=== PATIENT | male | born 1970 | race Caucasian/White ===

== ENCOUNTER 2018-06-13 17:33 | Inpatient (IN) | payer OTHER, SELFPAY ==
[2018-06-13] VITALS (10 sets, daily range): BP systolic 119–143; BP diastolic 50–70; PULSE 87–122; RESP 16–20; TEMP 36.5–37.1; O2SAT 94–96; BMI 31.1; BMI 32.1; BMI 30.3
--- NOTE | 2018-06-13 17:54 | RAD_ITS ---
STUDY: X-RAY CHEST REASON FOR EXAM: Male, 47 years old. : Cold symptoms TECHNIQUE: PA and lateral COMPARISON: None. FINDINGS: There is mild bilateral perihilar interstitial thickening with focal nodular infiltrate possibly pneumonia... There is no demonstrated pleural abnormality. Normal size heart. Normal mediastinum and vero. Normal visualized pulmonary arteries. Normal visualized aortic arch and descending thoracic aorta. Dorsal spine demonstrates mild spondylosis. Normal visualized ribs, clavicles, and shoulders. There is no demonstrated abnormality of the visualized soft tissue structures of the upper abdomen. RAD/Chest PA and Lateral IMPRESSION: Mild bilateral perihilar interstitial thickening and focal infiltrate in the lingula possibly inflammatory. Electronically Signed: Bryson Jacobs MD at 18:59 EDT , Service support ,
--- NOTE | 2018-06-13 17:59 | NURSING ---
NO OLD EKGS
[2018-06-13] MEDS: predniSONE 20 MG Tablet 60 MG PO (18:08)
[2018-06-13] MEDS: 0.9% Normal Saline 1,000 ML 999 ML IV ×3 (18:08→22:10)
[2018-06-13] MEDS: Albuterol 2.5 MG/3 ML VIAL.NEB. INHALATION ×2 (18:15)
[2018-06-13] MEDS: Ipratropium/Albuterol Sulfate 3 ML AMPUL.NEB INHALATION ×2 (18:15→23:32)
[2018-06-13 18:54] LABS: Absolute Lymphocyte Count 2.23 X10^3/ul (0.83-4.51); Absolute Neutrophil Count 14.1 X10^3/uL (2.0-7.7); Basophil# 0.02 X10^3/uL; Basophil% 0.1 % (0-1); Eosinophil# 0.22 X10^3/uL; Eosinophils% 1.2 % (0-5); Hematocrit 45.6 % (40-54); Hemoglobin 15.4 g/dl (13.0-16.5); Lymphocyte # 2.23 X10^3/ul (4.0); Lymphocyte % 12.5 % (19-41); Mean Corp Hgb Conc 33.8 g/gl (32-36); Mean Corpuscular Hgb 31.5 pg (27.0-32.0); Mean Corpuscular Volume 93.3 fL (80-94); Mean Platelet Vol. 10.6 fl (6.2-12.0); Monocyte# 1.21 X10^3/uL; Monocyte% 6.8 % (0-10); Neutrophil # 14.13 X10^3/uL (2.7-7.7); Neutrophil % 79.2 % (47-70); Platelet Count 244 K/mm3 (150-450); RBC Distribution Width CV 13.5 % (11.6-14.6); RBC Distribution Width SD 45.9 fl (35.1-43.9); Red Blood Count 4.89 M/mm3 (4.6-6.2); White Blood Count 17.9 K/mm3 (4.4-11.0)
--- NOTE | 2018-06-13 18:57 | ED.VIS.DYS ---
History of Present Illness Chief Complaint: Cold Sx Informant: Patient Onset: Weeks - 1.5 Activity at onset: Exertion, Light Activity Timing: Continuous Quality: Dyspnea on exertion Current Severity: Mild Maximum Severity: Moderate Worsened by: Coughing Associated Symptoms: Cough. Negative for: Fever Chest Pain: None Narrative: Patient presenting for evaluation secondary to shortness of breath. Patient reports over the course of the last week and a half he has been dealing with worsening shortness of breath. Associated with wheezing and a cough. Patient denies any lung history, but does state that he is a smoker. Patient states that he is having reasonably significant exertional dyspnea now. Denies any chest pain. Denies any DVT or PE risk factors. Review of systems otherwise negative. Past Medical History - Allergies and Home Meds Allergies/Adverse Reactions: Allergies No Known Allergies Allergy (Verified 06/13/18 17:35) Primary Care Physician: Care Physician,No Primary [Primary Care Provider] - Smoking Status: Current every day smoker Review of Systems All systems negative except as indicated General: Denies: Chills, Fever Cardiovascular: Denies: Chest pain Respiratory: Reports: Dyspnea, Cough, Dyspnea on exertion Gastrointestinal: Denies: Nausea, Vomiting, Diarrhea Physical Exam Vital Signs/Narrative: Vital Signs Temp Pulse Resp BP Pulse Ox 06/13/18 18:16 118 H 20 H 06/13/18 17:57 98.4 F 109 H 19 H 136/70 H 94 06/13/18 17:34 97.7 F L 112 H 16 136/70 H 95 General: Well nourished, Well developed, No Acute Distress Head: Normocephalic, Atraumatic Eyes: Perrl, EOMI ENT: Moist mucous membranes, No rhinorrhea Neck: Supple, Nontender Cardiovascular: Regular rhythm, Tachycardia, - - 2+ radial pulses bilaterally symmetric Respiratory: - - Patient is tachypneic with bilateral wheezes and rhonchi noted throughout the lung hyde. No retractions noted. Abdomen: Soft, Nontender, Nondistended, Normal bowel sounds Extremities: Nontender, No edema Skin: Normal color, No rash Neurological: Alert, Oriented x3, Cranial nerves II-XII grossly intact, Normal Strength, Normal Sensation Psychological: Normal affect, Normal Mood Diagnostic/Tx/Re-eval Chest X-Ray - ED: Left Infiltrate - Medical Decision Making Patient presented secondary to shortness of breath. Patient was found to be tachycardic and tachypneic upon arrival. Work-up for sepsis was obtained. Patient was found to have a leukocytosis of approximately 18. He was found to have an elevated lactic acid 2.8. X-ray demonstrated a left lingular infiltrate. Patient was given a DuoNeb and 2 albuterol treatments and prednisone upon arrival, and upon recognition of his pneumonia and sepsis he was given a 2 L normal saline bolus, and Rocephin and azithromycin. Given the patient's severe sepsis I believe that he requires admission. Patient will be admitted under the hospitalist. Disposition: Admit to PCU ED Disposition - Plan for ED Patient: Diagnosis: Severe sepsis, Community acquired pneumonia, COPD exacerbation Referrals: Care Physician,No Primary [Primary Care Provider] -
[2018-06-13 19:04] LABS: Anion Gap 5 (5-15); BUN 12 mg/dL (7-18); BUN/Creat Ratio 10.3 RATIO (10-20); Calcium,Total 8.2 mg/dL (8.5-10.1); Chloride 102 mmol/L (98-107); Creatinine, Serum 1.16 mg/dL (0.70-1.30); EST Glomerular Filtration Rate 72 mL/min (>60); Est Glom Filt Rate - Afr Amer 87 mL/min (>60); Estimated Creatinine Clearance 88.27 ml/min; Glucose 131 mg/dL (74-106); Potassium 3.9 mmol/L (3.5-5.1); Sodium Level 135 mmol/L (136-145)
[2018-06-13 19:12] LABS: Lactic Acid 2.8 mmol/L (0.4-2.0)
--- NOTE | 2018-06-13 19:12 | ED.RN ---
lab called with critical lab results. lactic acid 2.8. Dr. Barraza made aware. no new orders at this time
[2018-06-13 19:28] LABS: POSITIVE COUNT NO; POSITIVE DIFFERENTIAL NO; POSITIVE MORPHOLOGY NO
[2018-06-13] MEDS: Ceftriaxone 1 GM/50 ML BAG IV (19:57)
--- NOTE | 2018-06-13 20:12 | HP.PCM_ITS ---
Problem List (1) Severe sepsis Status: Acute (2) Community acquired pneumonia Status: Acute History of Present Illness Date of Admission: 06/13/18 Chief Complaint: Shortness of breath The patient is a 47 year old M with no known past medical history presenting with shortness of breath and dyspnea on exertion for the last 1.5 weeks. He had a mild fever at home at 100.7 per the . On presentation to the ER he was found to have some wheezing and rhonchi as well as a chest x-ray demonstrating a lingular pneumonia. His father does have a diagnosis of COPD but he has never been diagnosed despite his smoking for several years. In the ER he was tachycardic to over 100 as well as tachypneic to 20 and a white count of close to 18 thousand. He was given a dose of Rocephin and azithromycin in the ER as well as a fluid bolus consistent with his diagnosis of sepsis. Past Medical History Past Medical History (Chronic Problems): Chronic Problems COPD exacerbation (Chronic) Allergies No Known Allergies Allergy (Verified 06/13/18 17:35) Home Medications: Ambulatory Orders Medication Instructions Recorded NK 06/13/18 Surgical History: no surgical history Smoking Status: Current every day smoker Tobacco Use: Cigarettes - *Family History Maternal History Items: No pertinent history Paternal History Items: No pertinent history Review of Systems Constitutional: Reports: Fever. Denies: Chills, Weight Change HEENT: Denies: Head Aches, Sinus Congestion, Sinus Drainage Cardiovascular: Denies: Chest Pain, Palpitations Respiratory: Reports: Shortness of Breath, Shortness of breath upon exertion. Denies: Cough, Shortness of breath at rest, Sputum production Gastrointestinal: Denies: Abdominal Pain, Nausea, Vomiting Genitourinary: Denies: Dysuria Musculoskeletal: Denies: Joint Pain, Joint Tenderness Skin: Denies: Rash, Wounds Neurological: Denies: Numbness, Tingling, Focal weakness Psychiatric: Denies: Anxiety, Depression Hematologic/ Lymphatic: Denies: Easy Bruising, Easy Bleeding VTE Information - Inpt Only VTE Present on Admission: No Patient Problems: Active and Suspected Problems Severe sepsis (Acute) Community acquired pneumonia (Acute) - Physical Exam General: Alert, Oriented x3, Cooperative, No apparent distress HEENT: Atraumatic, PERRLA, EOMI, Normocephalic Oral: Dry Mucosa Neck: Supple, No JVD Lungs: Normal air movement, Rhonchi, Wheezes Cardiovascular: Regular rate, Regular Rhythm, Normal S1, Normal S2, No murmurs Abdomen: Soft, Non Tender, Non-Distended, No Hepato-splenomegaly Extremities: No edema, Capillary Refill Less than 3 Seconds Skin: No rashes, No breakdown Neurological: Neuro grossly intact, Sensory exam intact to light touch and pain Psych/Mental Status: Normal Affect, Appropriate Vital Signs Temp Pulse Resp BP Pulse Ox 98.7 F 122 H 18 143/65 H 95 06/13/18 19:40 06/13/18 19:40 06/13/18 19:40 06/13/18 19:40 06/13/18 19:40 Oxygen Delivery Method Room Air Weight: 230 lb Body Mass Index (BMI) 31.1 Microbiology Past 72 Hours 06/13/18 18:08 Influenza Types A,B Direct FA (JULIANA) - Final Mucosa - Nasopharyngeal Laboratory Tests Past 24 Hrs 06/13/18 06/13/18 06/13/18 18:05 18:05 18:05 WBC 17.9 H RBC 4.89 Hgb 15.4 Hct 45.6 MCV 93.3 MCH 31.5 MCHC 33.8 RDW 13.5 RDW Differential 45.9 H Plt Count 244 MPV 10.6 Immature Gran % (Auto) 0.200 Neut % (Auto) 79.2 H Lymph % (Auto) 12.5 L [place] % (Auto) 6.8 Eos % (Auto) 1.2 Baso % (Auto) 0.1 Absolute Neuts (auto) 14.1 H Absolute Lymphs (auto) 2.23 Total Counted Not Reportable Sodium 135 L Potassium 3.9 Chloride 102 Carbon Dioxide 28.0 Anion Gap 5 BUN 12 Creatinine 1.16 Estim Creat Clear Calc 88.27 Est GFR (MDRD) Af Amer 87 Est GFR (MDRD) Non-Af 72 BUN/Creatinine Ratio 10.3 Glucose 131 H Lactic Acid 2.8 H Calcium 8.2 L Assessment/Plan All Active Problems Severe sepsis (Acute) Community acquired pneumonia (Acute) 1. Sepsis secondary to community-acquired pneumonia gram-positive organism/possible COPD -Has leukocytosis as well as tachycardia, lactate of 2.8 in the ER -Continue with IV fluids at 125 cc/h -Continue with Rocephin/azithromycin -X-ray with a lingular infiltrate -Start on oral prednisone 40 daily as well as duo nebs as needed 2. Tobacco use -Discussed cessation -We will provide a nicotine patch DVT: Ambulation Code Visit Inpatient E&M: 81959 Init Hosp L3
[2018-06-13 22:49] LABS: Reflex Lactate? Y
[2018-06-13] MEDS: 0.9% Normal Saline 1,000 ML 125 ML IV (23:21)
[2018-06-13 23:58] LABS: Lactic Acid 2.1 mmol/L (0.4-2.0)
[2018-06-14] VITALS (7 sets, daily range): BP systolic 110–129; BP diastolic 48–70; PULSE 83–101; RESP 16–24; TEMP 36.7–36.9; O2SAT 93–96
[2018-06-14 05:55] LABS: Absolute Lymphocyte Count 1.26 X10^3/ul (0.83-4.51); Absolute Neutrophil Count 12.2 X10^3/uL (2.0-7.7); Basophil# 0.01 X10^3/uL; Basophil% 0.1 % (0-1); Eosinophil# 0.01 X10^3/uL; Eosinophils% 0.1 % (0-5); Hematocrit 40.8 % (40-54); Hemoglobin 13.7 g/dl (13.0-16.5); Lymphocyte # 1.26 X10^3/ul (4.0); Lymphocyte % 8.8 % (19-41); Mean Corp Hgb Conc 33.6 g/gl (32-36); Mean Corpuscular Volume 92.3 fL (80-94); Mean Platelet Vol. 10.4 fl (6.2-12.0); Monocyte# 0.89 X10^3/uL; Monocyte% 6.2 % (0-10); Neutrophil # 12.15 X10^3/uL (2.7-7.7); Neutrophil % 84.6 % (47-70); Platelet Count 241 K/mm3 (150-450); RBC Distribution Width CV 13.3 % (11.6-14.6); Red Blood Count 4.42 M/mm3 (4.6-6.2); White Blood Count 14.4 K/mm3 (4.4-11.0)
[2018-06-14 05:59] LABS: POSITIVE COUNT NO; POSITIVE DIFFERENTIAL NO; POSITIVE MORPHOLOGY NO
[2018-06-14 06:10] LABS: Anion Gap 4 (5-15); BUN 14 mg/dL (7-18); BUN/Creat Ratio 14.2 RATIO (10-20); Calcium,Total 7.5 mg/dL (8.5-10.1); Chloride 109 mmol/L (98-107); Creatinine, Serum 0.98 mg/dL (0.70-1.30); EST Glomerular Filtration Rate 87 mL/min (>60); Est Glom Filt Rate - Afr Amer 106 mL/min (>60); Estimated Creatinine Clearance 104.48 ml/min; Glucose 115 mg/dL (74-106); Potassium 4.3 mmol/L (3.5-5.1); Sodium Level 141 mmol/L (136-145)
[2018-06-14] MEDS: 0.9% Normal Saline 1,000 ML 125 ML IV (06:51)
[2018-06-14] MEDS: Ipratropium/Albuterol Sulfate 3 ML AMPUL.NEB INHALATION ×3 (07:30→19:06)
[2018-06-14] MEDS: predniSONE 20 MG Tablet 40 MG PO (08:16)
--- NOTE | 2018-06-14 10:57 | PCM.PROGNOTE ---
Patient Problems: Active and Suspected Problems Severe sepsis (Acute) Community acquired pneumonia (Acute) Subjective: Patient seen and examined. States he does not feel improved, continues to complain of shortness of breath and fatigue. Reports difficulty bringing up sputum. Denies fever, chills. - Physical Exam General: Alert, Oriented x3, Cooperative HEENT: Atraumatic, PERRLA, EOMI, Normocephalic Neck: Supple, No JVD, Negative Carotid Bruits Lungs: Diminished, Rhonchi, Wheezes Cardiovascular: Regular rate, Regular Rhythm, Normal S1, Normal S2, No murmurs Abdomen: Bowel Sounds Present, Soft, Non Tender, Non-Distended Extremities: No clubbing, No cyanosis, No edema, Capillary Refill Less than 3 Seconds Skin: No rashes, No breakdown Musculoskeletal: No Tenderness to Palpation of Joints or Extremities Neurological: Cranial nerves II-XII grossly intact, Neuro grossly intact Psych/Mental Status: Normal Affect, Appropriate Vital Signs Temp Pulse Resp BP Pulse Ox 98.1 F 83 16 116/70 95 06/14/18 08:12 06/14/18 08:12 06/14/18 08:12 06/14/18 08:12 06/14/18 08:12 Oxygen Delivery Method Room Air Weight: 223 lb 8.78 oz Body Mass Index (BMI) 30.3 Intake and Output for Last 24 Hours 06/12/18 06/13/18 06/14/18 23:59 23:59 23:59 Intake Total 2927 / 2927 1052 / 1052 Balance 2927 / 2927 1052 / 1052 Microbiology Past 72 Hours 06/13/18 18:08 Influenza Types A,B Direct FA (JULIANA) - Final Mucosa - Nasopharyngeal Laboratory Tests Past 24 Hrs 06/13/18 06/13/18 06/13/18 18:05 18:05 18:05 WBC 17.9 H RBC 4.89 Hgb 15.4 Hct 45.6 MCV 93.3 MCH 31.5 MCHC 33.8 RDW 13.5 RDW Differential 45.9 H Plt Count 244 MPV 10.6 Immature Gran % (Auto) 0.200 Neut % (Auto) 79.2 H Lymph % (Auto) 12.5 L [place] % (Auto) 6.8 Eos % (Auto) 1.2 Baso % (Auto) 0.1 Absolute Neuts (auto) 14.1 H Absolute Lymphs (auto) 2.23 Total Counted Not Reportable Sodium 135 L Potassium 3.9 Chloride 102 Carbon Dioxide 28.0 Anion Gap 5 BUN 12 Creatinine 1.16 Estim Creat Clear Calc 88.27 Est GFR (MDRD) Af Amer 87 Est GFR (MDRD) Non-Af 72 BUN/Creatinine Ratio 10.3 Glucose 131 H Lactic Acid 2.8 H Calcium 8.2 L 06/13/18 06/14/18 06/14/18 23:15 05:35 05:35 WBC 14.4 H RBC 4.42 L Hgb 13.7 Hct 40.8 MCV 92.3 MCH 31.0 MCHC 33.6 RDW 13.3 RDW Differential 44.0 H Plt Count 241 MPV 10.4 Immature Gran % (Auto) 0.200 Neut % (Auto) 84.6 H Lymph % (Auto) 8.8 L [place] % (Auto) 6.2 Eos % (Auto) 0.1 Baso % (Auto) 0.1 Absolute Neuts (auto) 12.2 H Absolute Lymphs (auto) 1.26 Total Counted Not Reportable Sodium 141 Potassium 4.3 Chloride 109 H Carbon Dioxide 28.0 Anion Gap 4 L BUN 14 Creatinine 0.98 Estim Creat Clear Calc 104.48 Est GFR (MDRD) Af Amer 106 Est GFR (MDRD) Non-Af 87 BUN/Creatinine Ratio 14.2 Glucose 115 H Lactic Acid 2.1 H Calcium 7.5 L Medical Necessity - Tobacco Use Smoking Status: Current every day smoker Tobacco Use: Cigarettes Assessment/Plan All Active Problems Severe sepsis (Acute) Community acquired pneumonia (Acute) 1. Severe sepsis secondary to community-acquired pneumonia-chest x-ray on admission with mild bilateral perihilar interstitial thickening and focal infiltrate in the lingula. Patient with leukocytosis, tachycardia and lactic acidosis on admission. Lactic acidosis improved. Continue IV azithromycin and IV Rocephin. Albuterol and DuoNeb aerosols. Mucinex 1200 mg p.o. twice daily. PEP. Send sputum for culture. Blood culture pending. 2. Acute COPD exacerbation-initiated on oral prednisone on admission. Given continued shortness of breath and wheezing, transition to IV Solu-Medrol. Albuterol and DuoNeb aerosols as noted above. Influenza negative. 3. Tobacco dependence-encourage smoking cessation. Nicotine replacement patch. DVT prophylaxis-Lovenox sc This patient was seen by DIPIKA Goodson under the supervision of Dr. Galicia.
[2018-06-14] MEDS: Enoxaparin 40 MG/0.4 ML Syringe SC (13:14)
[2018-06-14] MEDS: guaiFENesin 1,200 MG Tablet 1200 MG PO ×2 (13:14→21:04)
--- NOTE | 2018-06-14 14:00 | CASEMGMT ---
GANESH DUQUE assessment: Face to Face with patient for initial transition planning/care coordination assessment. GANESH DUQUE introduced self and role at [facility], pt voices understanding and consents to assessment at this time. Pt is sitting up in bed in no distress at this time. Pt is A/Ox4 at this time and answers all questions appropriately at this time. Care providers, pharmacy, and demographics verified at this time. PCP: Pt states does not currently have a PCP but local list provided at this time. Specialists: None currently [facility]erred [facility] Insurance: Pt states that he opted out of insurance thru his employer but states that he does have an HSA with a small amount of money in it. Pt states that PFS did speak with him previously regarding same. Prescription Benefit: none currently Living Will/HPOA: Pt states does not have LW/HPOA and declines info at this time. LNOK: Kelly Davila, louie other Living Arrangements: Pt states that he lives with SO and 4 'grandbabies' that they care for but states that they do not have custody of them currently. Pt states that they live in an apt with 2 flights of stairs. Pt states no concerns at home at this time and states is independent with ADL's. Transportation: Pt states drives self and states no transportation concerns at this time. DME/HHC: Pt states no current DME or need for any at this time. Pt states no hx of HHC or SNF in the past. Pt states no concerns with going home at this time of discharge. 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 Pt states smokes 1/2pack/day and occasionally drinks ETOH. Pt states no further concerns/needs at this time. CM to follow for any further discharge planning/needs. Advised pt to ask for CM if any further questions/concerns/needs arise, voices understanding. Pt Goal: Home Plan: Home [place] GANESH DUQUE
--- NOTE | 2018-06-14 14:15 | CASEMGMT ---
JERI gave patient some healthcare resources for [facility] as he is self pay. Ning KHOURY MSW
--- NOTE | 2018-06-14 16:57 | CHAPLAIN ---
Type of Pastoral Visit _x__ Initial Visit ___ Follow-up Visit ___ On-call Visit ___ General Patient Visit ___ Spiritual Assessment ___ Family Conference ___ Bereavement ___ Rapid Response ___ Code Blue ___ Other (describe below) Pastoral Care Referral From _x__ Patient ___ Family ___ Nurse ___ Physician ___ Environmental Field Team Member ___ Parachute Packer ___ Other (describe below) Sacrament/Intervention _x__ Active listening ___ Anointing ___ Taoism ___ Bereavement ___ Communion ___ Meme exploration ___ ___ Life review _x__ Prayer ___ Reconciliation ___ Sacrament of Sick _x__ Supportive presence ___ Wedding ___ Other (describe below) Pastoral Comments
[2018-06-14] MEDS: 0.9% NaCl Peripheral Flush Adult/Peds IV (21:04)
[2018-06-15 02:30] VITALS: BP 125/52; PULSE 86; RESP 18; TEMP 36.4; O2SAT 94
[2018-06-15] MEDS: 0.9% NaCl Peripheral Flush Adult/Peds IV ×2 (05:08→13:55)
[2018-06-15 06:31] LABS: Hematocrit 45.7 % (40-54); Hemoglobin 15.4 g/dl (13.0-16.5); Mean Corp Hgb Conc 33.7 g/gl (32-36); Mean Corpuscular Volume 92.1 fL (80-94); Mean Platelet Vol. 10.8 fl (6.2-12.0); Platelet Count 312 K/mm3 (150-450); RBC Distribution Width CV 13.5 % (11.6-14.6); RBC Distribution Width SD 44.8 fl (35.1-43.9); Red Blood Count 4.96 M/mm3 (4.6-6.2); White Blood Count 24.6 K/mm3 (4.4-11.0)
[2018-06-15 06:32] LABS: Scan Indicated on CBC? Y/N NO
[2018-06-15] MEDS: Ipratropium/Albuterol Sulfate 3 ML AMPUL.NEB INHALATION ×2 (06:44→13:20)
[2018-06-15 06:45] VITALS: PULSE 89; RESP 18
[2018-06-15 06:55] LABS: Anion Gap 7 (5-15); BUN 15 mg/dL (7-18); BUN/Creat Ratio 15.6 RATIO (10-20); Calcium,Total 8.8 mg/dL (8.5-10.1); Chloride 106 mmol/L (98-107); Creatinine, Serum 0.96 mg/dL (0.70-1.30); EST Glomerular Filtration Rate 90 mL/min (>60); Est Glom Filt Rate - Afr Amer 109 mL/min (>60); Estimated Creatinine Clearance 106.66 ml/min; Glucose 150 mg/dL (74-106); Potassium 4.6 mmol/L (3.5-5.1); Sodium Level 140 mmol/L (136-145)
[2018-06-15 08:30] VITALS: BP 120/63; PULSE 93; RESP 16; TEMP 36.8; O2SAT 93
[2018-06-15] MEDS: Enoxaparin 40 MG/0.4 ML Syringe SC (09:02)
[2018-06-15] MEDS: guaiFENesin 1,200 MG Tablet 1200 MG PO (09:02)
[2018-06-15 13:19] VITALS: PULSE 93; RESP 22
--- NOTE | 2018-06-15 13:45 | CASEMGMT ---
Addendum entered by Ning Gil 06/15/18 13:57: SW spoke with [facility] and patient has prescription insurance. She will call patient with his total. SW spoke with patient and let him know he has prescription coverage through [facility]. He was surprised as he did not know. SW will cancel request for indigent med program. Ning DELUNA Original Note: SW spoke with patient again regarding resources. SW gave him information on [facility], needymeds.org, and [facility]. SW also told patient [facility] has a program where we can assist with medications one time a year. SW told him we can assist with his d/c meds. He thanked for all of the assistance. SW will complete indigent medication form and send to pharmacy. Ning DELUNA
--- NOTE | 2018-06-15 13:51 | DCINST_ITS ---
- Discharge Diagnoses Current Active Problems: Current Active and Chronic Problems Severe sepsis (Acute) Community acquired pneumonia (Acute) COPD exacerbation (Chronic) You will use the following diet at home:: No restrictions Discharge Activity: Return to Normal Activity Call your doctor if you observe: Shortness of breath, Dizziness, Fainting spells, Chest pain Allergies/Adverse Reactions: Allergies No Known Allergies Allergy (Verified 06/13/18 20:37) Medications to take at Discharge Albuterol Inhaler [Ventolin Hfa] 1 - 2 puff INHALATION Q4H PRN PRN #1 inhaler 06/15/18 Amox/Clavulanate Tablet [Augmentin Tablet] 875 mg PO Q12H #10 tablet 06/15/18 Guaifenesin [Mucinex] 1,200 mg PO BID #20 tbmp.12hr 06/15/18 Prednisone See Taper PO DAILY #30 tablet 06/15/18 The following prescriptions were given: Albuterol Inhaler [Ventolin Hfa] 1 - 2 puff INHALATION Q4H PRN PRN #1 inhaler PRN Reason: Shortness Of Breath Amox/Clavulanate Tablet [Augmentin Tablet] 875 mg PO Q12H #10 tablet Prednisone See Taper PO DAILY #30 tablet Guaifenesin [Mucinex] 1,200 mg PO BID #20 tbmp.12hr Primary Care Physician: Care Physician,No Primary [Primary Care Provider] - Please follow up with your Primary Care Physician in: 1 Week Test Results: Test results from this visit will be discussed in further detail at your follow- up appointment, if applicable. Please Follow Up With: Ramu Garrison MD - Or Dr. Quispe When: Pulmonary Medicine, 2 weeks Proposed Discharge Date: 06/15/18
--- NOTE | 2018-06-15 13:51 | PCM.DC.SUM ---
Discharge Date and Diagnosis Date of Admission: 06/13/18 Date of Discharge: 06/15/18 - Primary Discharge Diagnosis Active and Suspected Problems 1. Severe sepsis secondary to presumed community-acquired pneumonia and acute rhinovirus 2. Suspected COPD with acute exacerbation as a result of acute rhinovirus 3. Tobacco dependence - Secondary Discharge Diagnosis Chronic Problems COPD exacerbation (Chronic) Hospital Course and Treatment Imaging Results: Diagnostic Data Chest X-Ray 06/13/18 17:54 IMPRESSION: Mild bilateral perihilar interstitial thickening and focal infiltrate in the lingula possibly inflammatory. Electronically Signed: Bryson Jacobs MD at 18:59 EDT , Service support , Operations: None Procedures: None Summary of Care Provided: The patient is a 47 year old M admitted 06/13/2018 due to shortness of breath. 1. Severe sepsis secondary to presumed community-acquired pneumonia and acute rhinovirus-chest x-ray on admission with mild bilateral perihilar interstitial thickening and focal infiltrate in the lingula. Patient with leukocytosis, tachycardia and lactic acidosis on admission. Lactic acidosis improved. Patient received IV azithromycin and IV Rocephin. Discharged on oral Augmentin for 5 days. Albuterol inhaler as needed for shortness of breath. Mucinex 1200 mg p.o. twice daily. Sputum culture shows normal respiratory merritt. Respiratory panel positive for rhinovirus. Blood cultures negative so far. Follow-up with primary care physician in 1 week. Follow-up with pulmonary medicine in 2 weeks. 2. Suspected COPD with acute exacerbation as a result of acute rhinovirus-IV Solu-Medrol transition to oral prednisone taper at discharge. Respiratory panel positive for rhinovirus. Patient has significant smoking history. Recommend outpatient follow-up with pulmonary medicine for pulmonary function testing to evaluate for COPD. Albuterol inhaler for as needed shortness of breath. 3. Tobacco dependence-encourage smoking cessation. General: Alert, Oriented x3, Cooperative HEENT: Atraumatic, PERRLA, EOMI, Normocephalic Neck: Supple, No JVD, Negative Carotid Bruits Lungs: Diminished, course throughout, Wheezes Cardiovascular: Regular rate, Regular Rhythm, Normal S1, Normal S2, No murmurs Abdomen: Bowel Sounds Present, Soft, Non Tender, Non-Distended Extremities: No clubbing, No cyanosis, No edema, Capillary Refill Less than 3 Seconds Skin: No rashes, No breakdown Musculoskeletal: No Tenderness to Palpation of Joints or Extremities Neurological: Cranial nerves II-XII grossly intact, Neuro grossly intact Psych/Mental Status: Normal Affect, Appropriate Patient seen and examined prior to discharge. Physical assessment as noted above. Patient is stable for discharge with follow up recommendations as noted above. This patient was seen by DIPIKA Goodson under the supervision of Dr. Galicia. - Physical Exam Vital Signs Temp Pulse Resp BP Pulse Ox 98.3 F 93 22 H 120/63 93 06/15/18 08:30 06/15/18 13:19 06/15/18 13:19 06/15/18 08:30 06/15/18 08:30 Oxygen Delivery Method Room Air Weight: 223 lb 8.78 oz Body Mass Index (BMI) 30.3 Intake and Output for Last 24 Hours 06/13/18 06/14/18 06/15/18 23:59 23:59 23:59 Intake Total 2927 / 2927 3926 / 3926 983 / 983 Balance 2927 / 2927 3926 / 3926 983 / 983 Microbiology Past 72 Hours 06/14/18 11:25 Gram Stain - Final Sputum, Expectorated/Coughed Respiratory Culture - Preliminary Appears to be normal respiratory merritt. Further studies to follow. 06/14/18 16:09 Respiratory Panel (PCR) - Final Mucosa - Nasopharyngeal Rhinovirus 06/13/18 18:08 Influenza Types A,B Direct FA (JULIANA) - Final Mucosa - Nasopharyngeal Laboratory Tests Past 24 Hrs 06/15/18 06/15/18 05:50 05:50 WBC 24.6 H RBC 4.96 Hgb 15.4 Hct 45.7 MCV 92.1 MCH 31.0 MCHC 33.7 RDW 13.5 RDW Differential 44.8 H Plt Count 312 MPV 10.8 Sodium 140 Potassium 4.6 Chloride 106 Carbon Dioxide 27.0 Anion Gap 7 BUN 15 Creatinine 0.96 Estim Creat Clear Calc 106.66 Est GFR (MDRD) Af Amer 109 Est GFR (MDRD) Non-Af 90 BUN/Creatinine Ratio 15.6 Glucose 150 H Calcium 8.8 Discharge Diet: No Restrictions Discharge Activity: Return to Normal Activity Call your doctor if you observe: Shortness of breath, Dizziness, Fainting spells, Chest pain Home Medications: Medications to take at Discharge Albuterol Inhaler [Ventolin Hfa] 1 - 2 puff INHALATION Q4H PRN PRN #1 inhaler 06/15/18 Amox/Clavulanate Tablet [Augmentin Tablet] 875 mg PO Q12H #10 tablet 06/15/18 Guaifenesin [Mucinex] 1,200 mg PO BID #20 tbmp.12hr 06/15/18 Prednisone See Taper PO DAILY #30 tablet 06/15/18 Following Prescrptions Were Given to Patient: Albuterol Inhaler [Ventolin Hfa] 1 - 2 puff INHALATION Q4H PRN PRN #1 inhaler PRN Reason: Shortness Of Breath Amox/Clavulanate Tablet [Augmentin Tablet] 875 mg PO Q12H #10 tablet Prednisone See Taper PO DAILY #30 tablet Guaifenesin [Mucinex] 1,200 mg PO BID #20 tbmp.12hr Primary Care Physician: Care Physician,No Primary [Primary Care Provider] - Please follow up with your Primary Care Physician in: 1 Week Please Follow Up With: Ramu Garrison MD - Or Dr. Quispe When: Pulmonary Medicine, 2 weeks Disposition: Home Minutes spent on discharge:: 35 Patient Condition:: Stable Medical Necessity - Tobacco Use Smoking Status: Current every day smoker Tobacco Use: Cigarettes Meaningful Use Info Meaningful Use Diagnoses (Choose all that apply): None applicable
[2018-06-15 13:59] VITALS: BP 143/76; PULSE 100; RESP 16; TEMP 36.8; O2SAT 96
--- NOTE | 2018-06-15 14:01 | CASEMGMT ---
Patient did not receive assistance through [facility] for medication as it was discovered by pharmacy he has prescription coverage. Ning KHOURY MSW
[2018-06-15 14:02] VITALS: O2SAT 95
--- NOTE | 2018-06-20 13:37 | CASEMGMT ---
RN CM Discharge F/U Phone Call LACE: 10 Strata: 3 Discharge date: 06/15/18 Call date: 06/20/18 Call time: [phone] Attempted to reach pt without success at this time, message left for pt to call this RN CM back if/when able. [place] RN CM Admission dx: Severe sepsis, COPD exac, pna
== END 2018-06-15 14:35 | disposition home or self-care (01) | DRG 871 ==
LOC: ED 18:22 → PCU 06-14 07:15
PROVIDERS: Nurse Practitioner Family; Admitting Provider Family Medicine; Emergency Provider Emergency Medicine; Referring Provider Family Medicine; Visit Provider Internal Medicine
DX: A41.89 Other specified sepsis (principal); J12.89 Other viral pneumonia; J44.0 Chronic obstructive pulmonary disease with (acute) lower respiratory infection; J44.1 Chronic obstructive pulmonary disease with (acute) exacerbation; R65.20 Severe sepsis without septic shock; F17.210 Nicotine dependence, cigarettes, uncomplicated
CPT/HCPCS: 36415; 71046; 80048; 83605; 85025; 85027; 87040; 87070; 87205; 87633; 87804; 94640; 94667; 94668; 99285; 99406; J7030; A4216; J0696

== ENCOUNTER → 2018-07-10 07:48 | Outpatient (CLI) | payer MEDICAID, SELFPAY ==
[2018-06-21 06:38] VITALS: BMI 30.4
--- NOTE | 2018-07-11 08:42 | PFT ---
INTRODUCTION: The patient is a 47-year-old male that presents for pulmonary function studies secondary to a diagnosis of COPD. Respiratory therapy reports good patient effort. Bronchodilators were used during testing. INTERPRETATION: Forced expiration spirometry demonstrates the presence of a moderately severe large airways obstructive ventilatory defect. There was a significant response to aerosolized bronchodilators. Spirograms are of good quality and plateau gradually indicating slow emptying of the lungs. Body plethysmography was performed and reveals a decreased TLC to 5.24 L, 71% of predicted, indicative of a mild restrictive ventilatory defect. The remainder of the lung volumes are symmetrically reduced. Diffusing capacity by single breath CO is mildly reduced as well. IMPRESSION: Fully reversible moderately severe mixed ventilatory defect with mild reduction in diffusing capacity. There are no previous pulmonary function studies available for comparison.
== END ==
PROVIDERS: Referring Provider Internal Medicine Critical Care Medicine; Visit Provider Internal Medicine Critical Care Medicine
DX: J44.9 Chronic obstructive pulmonary disease, unspecified (principal); F17.210 Nicotine dependence, cigarettes, uncomplicated
CPT/HCPCS: 94060; 94726; 94729

== ENCOUNTER → 2018-07-13 10:50 | Outpatient (CLI) | payer MEDICAID, SELFPAY ==
[2018-06-21 06:38] VITALS: BMI 30.4
[2018-07-13 11:16] VITALS: PULSE 102; PULSE 90; PULSE 93; PULSE 96; PULSE 97; PULSE 98; O2SAT 95; O2SAT 96; O2SAT 97; O2SAT 98
--- NOTE | 2018-07-13 12:34 | PCM.PSN.6M ---
PSN 6 Minute Walk Test - 6 Minute Walk Test 6 Minute Walk Test: 6 Minute Walk Test PSN:6-Minute Walk Test Start: 07/13/18 11:15 Freq: Status: Active Protocol: RESP.6MINW Document 07/13/18 11:16 TISHA (Rec: 07/13/18 11:17 TISHA [id number]) 6 Minute Walk Test Date Performed 07/13/18 Time Performed 11:00 Height 6 ft Weight: 220 lb Weight in Pounds 220.[address]: Hoang Quispe Assistive device used: None Pre-test Oxygen Delivery Method Room Air Pulse Ox (%) 97 Pulse Rate (60-100 beats/min) 93 Dyspnea Gregorio Scale (0-10) 0 Exertion Gregorio Scale (6-20) 6 1st minute Oxygen Delivery Method Room Air Pulse Ox (%) 96 Pulse Rate (60-100 beats/min) 98 2nd minute Oxygen Delivery Method Room Air Pulse Ox (%) 96 Pulse Rate (60-100 beats/min) 96 3rd minute Oxygen Delivery Method Room Air Pulse Ox (%) 96 Pulse Rate (60-100 beats/min) 98 4th minute Oxygen Delivery Method Room Air Pulse Ox (%) 97 Pulse Rate (60-100 beats/min) 97 5th minute Oxygen Delivery Method Room Air Pulse Ox (%) 95 Pulse Rate (60-100 beats/min) 97 6th minute Oxygen Delivery Method Room Air Pulse Ox (%) 97 Pulse Rate (60-100 beats/min) 102 H Dyspnea Gregorio Scale (0-10) 3 Exertion Gregorio Scale (6-20) 14 Post-test Oxygen Delivery Method Room Air Pulse Ox (%) 98 Pulse Rate (60-100 beats/min) 90 Full Laps Walked 19 Partial Lap, Number of Tiles Walked 20 Total Distance Walked (ft) 1141 - Interpretation Interpretation: The patient ambulated 1141 feet over the course of 6 minutes beginning on room air without assistive devices or breaks. Pretesting oxygen saturation was noted to be 97% on room air. With ambulation, the sarthak oxygen saturation was 95%. There was no significant exertional oxygen desaturation. - Recommendations Recommendations: There is no indication for the use of supplemental oxygen at this time.
== END ==
PROVIDERS: Referring Provider Internal Medicine Critical Care Medicine; Visit Provider Internal Medicine Critical Care Medicine
DX: J44.9 Chronic obstructive pulmonary disease, unspecified (principal); F17.210 Nicotine dependence, cigarettes, uncomplicated
CPT/HCPCS: 94618

== ENCOUNTER → 2018-08-15 14:32 | Outpatient (CLI) | payer OTHER, MEDICAID, SELFPAY ==
[2018-08-15 13:52] VITALS: BMI 31.4
--- NOTE | 2018-08-15 14:36 | RAD_ITS ---
STUDY: X-RAY CHEST REASON FOR EXAM: Male, 47 years old. TECHNIQUE: 2 views COMPARISON: June 13, 2018. FINDINGS: The lungs are clear and expanded. There is no demonstrated pleural abnormality. Normal size heart. Normal mediastinum and vero. Normal visualized pulmonary arteries. Normal visualized aortic arch and descending thoracic aorta. Normal visualized thoracic spine. Normal visualized ribs, clavicles, and shoulders. There is no demonstrated abnormality of the visualized soft tissue structures of the upper abdomen. RAD/Chest PA and Lateral IMPRESSION: Normal x-ray examination of the chest unchanged since June 13, 2018. Electronically Signed: Grupo Burrell, at 15:07 EDT Tel , Service support ,
== END ==
PROVIDERS: Referring Provider Nurse Practitioner Acute Care; Visit Provider Nurse Practitioner Acute Care
DX: J44.1 Chronic obstructive pulmonary disease with (acute) exacerbation (principal)
CPT/HCPCS: 71046; 87070; 87205